=== PATIENT | female | born 1990 | race Caucasian/White ===

== ENCOUNTER 2017-02-12 06:17 | Emergency (ER) | payer OTHER ==
[2017-02-12] MEDS ORDERED: ONDANSETRON HCL/PF 2 MG/ML VIAL IV ONE (06:42)
[2017-02-12] MEDS ORDERED: NORMAL SALINE 1,000 ML IV ONE (06:43)
--- NOTE | 2017-02-12 06:47 | ERNOTE ---
Abdominal HPI - General Chief Complaint: Abdominal Pain Time Seen by Provider: 02/12/17 06:28 Source: patient Exam Limitations: no limitations - Immun/Allergies/Home Medications Immunizatons: IMMUNIZATION HX Immunizations Up to Date Yes History of Influenza Vaccine Yes Hx Pneumococcal Vaccination No Allergies/Adverse Reactions: Allergies No Known Allergies Allergy (Unverified 02/12/17 06:25) Home Medications: HOME MEDICATIONS ALPRAZolam [Xanax] 0.25 mg PO TID PRN 02/12/17 [Last Taken Unknown] Ondansetron HCl [Zofran] 1 - 2 tab PO Q8H PRN #10 tab 02/12/17 [Last Taken Unknown] busPIRone HCL [Buspar] 5 mg PO TID PRN 02/12/17 [Last Taken Unknown] - History of Present Illness Narrative: Pt began to loose her appetite last evening. Overnight she began to have N/V/D multiple times. Diarrhea watery, vomiting until dry heaving, with left sided abdominal pain Timing: getting worse Quality: moderate, severe, cramping, sharpness - radiating up to her epigastrium Activities at Onset: sleep Associated Symptoms: Present: denies symptoms Review of Systems - Review of Systems Constitutional: Absent: recent illness EYE: Present: no symptoms reported ENT: Present: no symptoms reported Respiratory: Absent: shortness of breath Cardiology: Absent: chest pain Gastrointestinal/Abdominal: Present: See HPI Genitourinary: Absent: frequency, dysuria Musculoskeletal: Present: no symptoms reported Skin: Present: no symptoms reported Neurological: Present: no symptoms reported Endocrine: Present: no symptoms reported Hematologic/Lymphatic: Present: no symptoms reported Psych: Present: no symptoms reported - Patient's Past Medical History Patient History - Medical: No pertinent hx Patient History - Cardiac/Respiratory: No pertinent hx Patient History - Cancer: No Hx of Cancer Patient History - Other: None LMP (females 10-50): 3 weeks - Social History Living Situations: home Psych History: Hx of Anxiety Smoking Status: Never smoker Have you smoked in the past 12 months: No Do you dip or chew tobacco: No Alcohol Use: none Drug Use: none - Immunizations Immunizations Up to Date: Yes Hx Pneumococcal Vaccination: No History of Influenza Vaccine: Yes Physical Exam - Physical Exam General Appearance: Present: wd/wn, alert, mild distress Head Exam: Present: normal inspection, no evidence of injury Eye Exam: Normal inspection: bilateral Neck: Present: normal inspection, supple Respiratory: Present: no respiratory distress, normal breath sounds, lungs clear Cardiovascular/Chest: Present: regular rate, rhythm, no murmur Gastrointestinal/Abdominal: Present: tenderness - left side upper and lower and epigastrium. Back Exam: Present: normal inspection, normal range of motion Extremity Exam: Present: normal inspection, normal range of motion, no edema Neurological Exam: Present: alert, oriented Skin Exam: Present: normal color, warm/dry ED Progress - Results and Orders Patient's Lab Results:: I have reviewed the patient's lab results. Results and Orders: Laboratory Tests 02/12/17 02/12/17 02/12/17 06:59 06:59 06:59 WBC 13.0 H Hgb 14.4 Hct 41.5 Plt Count 234 Neutrophils % 89.0 H Sodium 140 Potassium 3.7 Chloride 102 Carbon Dioxide 28.8 BUN 11 Creatinine 0.78 Random Glucose 107 Calcium 8.6 Total Bilirubin 0.8 AST 15 ALT 21 Alkaline Phosphatase 59 Total Protein 7.7 Albumin 4.1 Amylase 53 Lipase 85 Urine Color Urine Appearance Urine pH Ur Specific [place] Urine Protein Urine Glucose (UA) Urine Ketones Urine Blood Urine Nitrate Urine Bilirubin Urine Urobilinogen Ur Leukocyte Esterase Urine RBC Urine WBC Ur Epithelial Cells Urine Bacteria Urine Culture Comments Urine HCG, Qual Negative 02/12/17 06:59 WBC Hgb Hct Plt Count Neutrophils % Sodium Potassium Chloride Carbon Dioxide BUN Creatinine Random Glucose Calcium Total Bilirubin AST ALT Alkaline Phosphatase Total Protein Albumin Amylase Lipase Urine Color Yellow Urine Appearance Clear Urine pH 6.0 Ur Specific [place] 1.020 Urine Protein Negative Urine Glucose (UA) Negative Urine Ketones 5 Urine Blood 5 H Urine Nitrate Negative Urine Bilirubin Negative Urine Urobilinogen Normal Ur Leukocyte Esterase Negative Urine RBC 0-5 Urine WBC 0-5 Ur Epithelial Cells 5-10 H Urine Bacteria None seen Urine Culture Comments No culture indicated Urine HCG, Qual - Vital Signs Patient's Vital Signs:: I have reviewed the patient's vital signs. Vital Signs: Vital Signs 02/12/17 06:20 Temperature 36.8 C Pulse Rate 107 H Respiratory 16 Rate Blood Pressure 125/81 O2 Sat by Pulse 95 Oximetry - X-Ray X-Ray #1 X-Ray: abdomen Interpretation: Reviewed by me X-ray Comments: Non specific non obstructive bowel gas pattern. - Progress/Reassessment Chief Complaint: Abdominal Pain Departure - Departure Clinical Impression: Gastroenteritis Disposition: Home self-care Condition: Good Instructions: Viral Gastroenteritis, Adult, [id number] Referrals: Dodie Garg FNP [Primary Care Provider] - Prescriptions: Ondansetron HCl [Zofran] 1 - 2 tab PO Q8H PRN #10 tab PRN Reason: Nausea
[2017-02-12 07:01] LABS: Hematocrit 41.5 % (37.0-47.0); Hemoglobin 14.4 gm/dL (12.5-16.0); Mean Cell Volume 90.8 fl (78-100); Mean Corpuscular Hemoglobin 31.5 pg (27-31); Mean Corpuscular Hgb Conc 34.7 g/dl (32-36); Mean Platelet Volume 9.3 fl (6.0-9.5); Neutrophil # 11.6 K/mm3 (1.3-6.0); Platelet Count 234 K/mm3 (150-450); Red Blood Count 4.57 M/mm3 (4.2-5.4); Red Cell Distribution Width 11.6 % (11.5-14.0)
[2017-02-12 07:04] LABS: Urine Bilirubin Negative (NEGATIVE); Urine Ketone 5 mg/dL (NEGATIVE); Urine Nitrite Negative (NEGATIVE); Urine Protein Negative (NEGATIVE); Urine Urobilinogen Normal (NORMAL)
[2017-02-12] MEDS ORDERED: ONDANSETRON HCL/PF 2 MG/ML VIAL ONE (07:13)
[2017-02-12 07:15] LABS: Albumin * 4.1 gm/dl (3.4-5.0); Anion Gap 12.9 mmol/L (6.8-13.8); BUN/Creatinine Ratio 14.1 (9.0-21.6); Bilirubin, Total 0.8 mg/dL (0.0-1.1); Ca. Corrected For Albumin 8.2 mg/dL (8.4-10.2); Calcium * 8.6 mg/dL (7.9-10.9); Carbon Dioxide 28.8 mmol/L (24-32.6); Potassium 3.7 mmol/L (3.4-4.6); Total Protein 7.7 gm/dL (6.2-8.2)
[2017-02-12 07:21] LABS: Urine Blood 5 /ul (NEGATIVE); Urine Color Yellow
[2017-02-12 07:22] LABS: Urine Appearance Clear; Urine Bacteria None Seen; Urine RBC 0-5 /hpf (0-5); Urine WBC 0-5 /hpf (0-5)
[2017-02-12 07:36] VITALS: BP 116/59
[2017-02-12] MEDS ORDERED: PROCHLORPERAZINE EDISYLATE 5 MG/ML VIAL IV ONE (07:41)
[2017-02-12] MEDS ORDERED: PROCHLORPERAZINE EDISYLATE 5 MG/ML VIAL ONE (07:44)
== END 2017-02-12 08:19 | disposition home or self-care (01) ==
LOC: ER 06:17
DX: K52.9 Noninfective gastroenteritis and colitis, unspecified (principal)
CPT/HCPCS: 36415; 74020; 80053; 81001; 82150; 83690; 84703; 85025; 96374; 96375; 99284; J2405

== ENCOUNTER 2020-10-30 23:37 | Inpatient (IN) ==
[2020-10-31] MEDS ORDERED: MISOPROSTOL 100 MCG TABLET VG PRN (00:05)
[2020-10-31] MEDS ORDERED: DEXTROSE 5%-LACTATED RINGERS 1,000 ML IV PRN (00:05)
[2020-10-31] MEDS ORDERED: ONDANSETRON 4 MG TAB.RAPDIS PO PRN (00:05)
[2020-10-31] MEDS ORDERED: OXYTOCIN/0.9 % SODIUM CHLORIDE 30 UNITS/500 ML BAG IV ONE (00:05)
[2020-10-31] MEDS ORDERED: RINGER'S SOLUTION,LACTATED 1,000 ML IV ONE (00:05)
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
--- NOTE | 2020-10-31 13:38 | PN ---
Progess Note - Interim Date: 10/31/20 Time: 13:34 Narrative: 10/31/20 13:34 Patient rating contractions as mild still. Vital signs stable. Pitocin at 8 mu/min. FHT: A: 125 baseline, reassuring B: 120 baseline, reassuring Contractions q 2-3 min Cervix: 2/70/-2 Bedside ultrasound confirmed both fetuses in cephalic presentation with baby B actually below baby A Impression: Intrauterine at 36 5/7 weeks with induction of labor due to di-di twin with IUGR in baby B Plan: Continue present plan
[2020-10-31] MEDS ORDERED: ONDANSETRON HCL/PF 2 MG/ML VIAL IV PRN ×2 (17:39→18:00)
[2020-10-31] MEDS ORDERED: NALOXONE HCL 1 MG/1 ML SYRG IV PRN ×2 (17:39→18:00)
[2020-10-31] MEDS ORDERED: BUPIVACAINE HCL/0.9 % NACL/PF 250 ML EP PRN ×2 (17:39→18:00)
--- NOTE | 2020-10-31 17:42 | PN ---
Progess Note - Interim Date: 10/31/20 Time: 17:39 Narrative: 10/31/20 17:39 Patient rating contractions 4 out of 10 Vital signs stable. Pitocin at 8 mu/min. FHT: A: 120 baseline, reassuring B:120 baseline, reassuring Contractions q 2-3 min Cervix: 2/70/-2, AROM-clear Impression: Intrauterine at 36 5/7 weeks di-di twin induction for baby B with IUGR. Plan: Continue present plan
[2020-10-31] MEDS ORDERED: BUPIVACAINE HCL/PF 30 ML VIAL EP SCH (17:45)
[2020-10-31] MEDS ORDERED: fentaNYL CITRATE/PF 50 MCG/ML AMPUL IT SCH (18:00)
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
--- NOTE | 2020-10-31 18:42 | ANES ---
Post Anesthesia Discharge - Transfer of Care Transfer of Care handoff given to nurse: Yes - Discharge from PACU Discharge from PACU when meets criteria: Yes - Comfortable post CSE.
--- NOTE | 2020-10-31 18:45 | ANES ---
Anesthesia Procedure Note Procedure Note: ANESTHESIA PROCEDURE NOTE Date of Procedure: 10/31/2020 Time of procedure: 1819. Performed by: TEDDY Wheeler CRNA, MSN Preprocedure diagnosis: Active labor, labor pain. Post procedure diagnosis: Same. Procedure:Epidural for labor analgesia L3-4. Indications: Labor pain. Findings: See below. Details of the procedure: The patient was placed on the side of the bed in sitting positionand prepped with DuraPrep then draped in a sterile fashion. Lidocaine 1% was infiltrated to the skin and subcutaneous tissues at the level of the 3 4 interspace. An 18-gauge Touhy needle was used to approach the epidural space with loss of resistance technique. Once loss of resistance was achieved a 27-gauge spinal needle was passed through the epidural needle and CSF was contacted. After CSF returned, 20 mcg of fentanyl was injected in the spinal needle was removed the epidural catheter was then threaded approximately 4 cm in the epidural needle was removed. The catheter was taped in place and after careful aspiration 3 mL of 1.5% lidocaine with 1-200,000 epinephrine was injected without change in maternal heart rate or sensorium. . EBL: Minimal. Fluids: N/A. Specimen: N/A. Post procedure condition: The patient tolerated the procedure well with good relief. No complications were noted. Thank you for this consultation. Eleazar Oconnor CRNA, TEDDY, MSN
--- NOTE | 2020-10-31 19:43 | ANES ---
Post Anesthesia Assessment - Vital Signs Vitals: Last Vital Signs Temp 36.7 C 10/31/20 02:11 Pulse 76 10/31/20 02:11 Resp 18 10/31/20 02:11 BP 134/79 10/31/20 02:11 Pulse Ox 98 10/31/20 02:11 Airway Patency: Normal - Mental Status Level Of Consciousness: Awake, Alert, Appropriate - Pain Level Pain Score: 0 - N/V Assessment Nausea/Vomiting Presence: None Dehydration:: No
--- NOTE | 2020-11-01 03:47 | PN ---
Progess Note - Interim Date: 11/01/20 Time: 03:43 Narrative: 11/01/20 03:43 Patient comfortable with epidural Vital signs stable. Pitocin at 10 mu/min. FHT: A: 160 baseline, reassuring B:150 baseline, reassuring Contractions q 2-3 min Cervix: 7-8/90/-1 Impression: Intrauterine at 36 6/7 weeks di-di twin induction for baby B with IUGR. Plan: Anticipate normal spontaneous vaginal delivery within the next 3 to 4 hours.
[2020-11-01] MEDS ORDERED: SODIUM BICARBONATE 650 MG TABLET PO ONE (05:54)
[2020-11-01] MEDS ORDERED: LIDOCAINE HCL/EPINEPHRINE 20 ML VIAL ONE (06:37)
[2020-11-01] MEDS ORDERED: LIDOCAINE HCL/EPINEPHRINE/PF 20 ML VIAL IJ ONE (06:37)
--- NOTE | 2020-11-01 06:46 | ANES ---
Post Anesthesia Assessment - Vital Signs Vitals: Last Vital Signs Temp 36.7 C 10/31/20 02:11 Pulse 76 10/31/20 02:11 Resp 18 10/31/20 02:11 BP 134/79 10/31/20 02:11 Pulse Ox 98 10/31/20 02:11 Airway Patency: Normal - Mental Status Level Of Consciousness: Awake, Alert, Appropriate - Pain Level Pain Score: 0 - N/V Assessment Nausea/Vomiting Presence: None Dehydration:: No - Additional Notes Comments:: In communications throughout evening. About 1 hour after epidural was placed Ms. Blancas complained of not feeling right and was nauseated. I could not reasonably explain the experience she was having but of out of an abundance of caution I ordered a temporary stoppage of the epidural pump. There was no blood aspirated from the epidural, I have allowed about an hour and her complaints of nausea and not feeling right dissipated. The epidural pump was restarted without further issue. This morning as she Reddys for delivery she complained that her legs are more swollen and somewhat numb. She has no complaints of labor pain. Although her legs had previously been swollen the nurse attending to her did remark that they appeared more swollen than yesterday. I explained that we were going to return to the OR for delivery and, although I I was going to be there with her, I would probably have limited intervention as I am not normally in attendance for delivery.
--- NOTE | 2020-11-01 09:40 | OR ---
Operative Report - Dictated Report Narrative: Twin delivery in OR: Baby A: Spontaneous vaginal delivery of vigorously crying viable female at 0824 on 11/01/2020 with Apgars 8 and 9, weighing 2747 g in ANNE position. Baby B: Spontaneous vaginal delivery of vigorously crying viable female at 0836 on 11/01/2020 with Apgars 9 and 9, weighing 2278 g and OP presentation. Cord clamping delayed approximately 1 minute for each Fused placentas with 2 amnion and 2 chorion's delivered complete, intact, each with three vessel cord. Cord clamp placed on baby A's umbilical cord. Estimated blood loss: 100 mL Anesthesia: Epidural Lacerations: 5 cm second-degree vaginal laceration with intact external anal sphincter repaired with 0 Vicryl and 3-0 Vicryl Rapide. History for MU History for Definition: * The number of deliveries resulting in a live the patient experienced prior to current hospitalization * The previous delivery of live twins or any live multiple gestation is considered one live event. *If primagravida or nulliparous is documented select zero for the number of previous live births. Live Events: Live Events: 0
[2020-11-01] MEDS ORDERED: HYDROCORTISONE 30 APPL TUBE TP PRN (09:44)
[2020-11-01] MEDS ORDERED: ACETAMINOPHEN 325 MG TABLET PO PRN (09:44)
[2020-11-01] MEDS ORDERED: SENNOSIDES 8.6 MG TABLET PO PRN (09:44)
[2020-11-01] MEDS ORDERED: BENZOCAINE/MENTHOL 81 SPRAY CAN TP PRN (09:44)
[2020-11-01] MEDS ORDERED: BISACODYL 10 MG SUPP.RECT RC PRN (09:44)
[2020-11-01] MEDS ORDERED: OXYTOCIN/0.9 % SODIUM CHLORIDE 30 UNITS/500 ML BAG IV ONE (09:44)
[2020-11-01] MEDS ORDERED: GLYCERIN/WITCH HAZEL LEAF 40 APPL BOX TP PRN (09:44)
[2020-11-01] MEDS ORDERED: NON-FORMULARY 1 DOSE DOSE (Breast Pump device) SCH (09:45)
[2020-11-01] MEDS: IBUPROFEN 800 MG TABLET PO PRN ×2 (12:11→18:55)
[2020-11-01] MEDS: DOCUSATE SODIUM 100 MG CAPSULE PO SCH (21:18)
[2020-11-01] MEDS: oxyCODONE HCL/ACETAMINOPHEN 1 TAB TABLET PO PRN (23:04)
[2020-11-02] MEDS: IBUPROFEN 800 MG TABLET PO PRN ×3 (03:50→21:21)
[2020-11-02] MEDS: oxyCODONE HCL/ACETAMINOPHEN 1 TAB TABLET PO PRN (08:59)
[2020-11-02] MEDS: DOCUSATE SODIUM 100 MG CAPSULE PO SCH ×2 (08:59→21:05)
[2020-11-02] MEDS: PRENATAL VITS96/IRON FUM/FOLIC 1 TAB TABLET PO SCH (08:59)
--- NOTE | 2020-11-02 11:10 | PN ---
Subjective - Date and Time Seen Date: 11/02/20 Time: 11:07 Objective - Vitals Vitals: Last Vital Signs Temp 36.6 C 11/02/20 08:10 Pulse 66 11/02/20 08:10 Resp 20 11/02/20 08:10 BP 131/71 11/02/20 08:10 Pulse Ox 99 11/02/20 08:10 Patient having trouble sleeping due to hearing babies crying, breast-feeding well, perineal pain controlled. Lochia wnl abdomen - soft, nontender Uterus -firm, at umbilicus - 1 No calf tenderness Impression: day #1 - s/p spontaneous vaginal delivery of twins. Plan: Continue routine care. Ice pack to perineum. Encouraged mom to rely on nurses to care for baby so she can sleep. Cauti Physician Documentation - Urinary Catheter Management Urethral ([place]) Date of Insertion: 10/31/20 Time of Insertion: 19:30 Date of Removal: 11/01/20 Time of Removal: 08:19 Assessment/Plan - Problems/Diagnosis (1) Twin delivered vaginally Problem: Acute (2) Twin resulting from assisted reproductive technology (ART) Problem: Acute (3) with history of ectopic Problem: Resolved Qualifiers: Trimester: third trimester Qualified Code(s): O09.13 - Supervision of with history of ectopic , third trimester (4) Anxiety Problem: Inactive (5) Depression Problem: Inactive Qualifiers:
[2020-11-03] MEDS: IBUPROFEN 800 MG TABLET PO PRN ×2 (03:11→09:15)
[2020-11-03 07:59] VITALS: BP 129/86
[2020-11-03] MEDS: DOCUSATE SODIUM 100 MG CAPSULE PO SCH (08:38)
[2020-11-03] MEDS: PRENATAL VITS96/IRON FUM/FOLIC 1 TAB TABLET PO SCH (08:38)
--- NOTE | 2020-11-03 10:39 | PN ---
Subjective - Date and Time Seen Date: 11/03/20 Time: 10:38 Objective - Vitals Vitals: Last Vital Signs Temp 37 C 11/03/20 07:45 Pulse 92 11/03/20 07:45 Resp 16 11/03/20 07:45 BP 129/86 11/03/20 07:45 Pulse Ox 98 11/03/20 07:45 Patient denies complaints. Breast-feeding well. Lochia wnl abdomen - soft, nontender Uterus -firm, at umbilicus - 2 No calf tenderness Impression: day #2 - s/p spontaneous vaginal delivery. Plan: Routine discharge instructions Cauti Physician Documentation - Urinary Catheter Management Urethral ([place]) Date of Insertion: 10/31/20 Time of Insertion: 19:30 Date of Removal: 11/01/20 Time of Removal: 08:19 Assessment/Plan - Problems/Diagnosis (1) Twin delivered vaginally Problem: Acute (2) Twin resulting from assisted reproductive technology (ART) Problem: Acute (3) with history of ectopic Problem: Resolved Qualifiers: Trimester: third trimester Qualified Code(s): O09.13 - Supervision of with history of ectopic , third trimester (4) Anxiety Problem: Inactive (5) Depression Problem: Inactive Qualifiers:
--- NOTE | 2020-11-03 10:41 | DS ---
OB Discharge Summary (1) Twin delivered vaginally Status: Acute (2) Twin resulting from assisted reproductive technology (ART) Status: Acute (3) with history of ectopic Status: Resolved Qualifiers: Trimester: third trimester Qualified Code(s): O09.13 - Supervision of with history of ectopic , third trimester (4) Anxiety Status: Inactive (5) Depression Status: Inactive Qualifiers: Delivery Date: 11/01/20 Delivery Time: 08:24 :: 3 Para:: 2 Gestational weeks:: 36 Gestational days:: 6 Intrapartum Procedures: Spontaneous Vaginal Delivery, Delivered, Anesthesia - Epidural /OP Complications: No Complications Discharge Diagnosis: Term -Delivered, Rubella Immune - Discharge Information Date of Discharge: 11/03/20 Hospital Course: 30-year-old 3 para 0-1-2-2 admitted at 36 5/7 weeks for induction of labor due to diamniotic dichorionic twins with baby B showing IUGR. Induction, labor, delivery, and course were uncomplicated. Discharge Location: Home Condition: Good Activity on Discharge:: Activity as tolerated, Pelvic Rest Discharge Diet: General/regular food Additional Patient Instructions (free text): Chao your post follow up appointment is scheduled for Thursday November 26, 2020 at 9:[address] Varner. Please call [facility] or [facility] with any problems or concerns. Ernestine's follow up appointments are scheduled for Friday November 06, 2020 at 12:30 p.m. with Dione Vail ADVERTISING SUPERVISOR Please call [facility] with any problems or concerns. Before or after your appointments please contact us for Rupinder's follow up hearing screen. Anel's blood type is A+ Discharge weight 5 lbs 8.5 oz Rupinder's blood type is AB+ Discharge weight 4 lbs 11.1 oz Continue to breastfeed them at least every 2-[address] them on their back to sleep in their own bassinets or cribs. No stuffed animals, bumper pads, pillows or blankets. Congratulations on your beautiful twins! Thank you for choosing [facility]. Prescriptions (Any new or edited meds): Ferrous Sulfate 325 mg PO DAILY #60 tab Ibuprofen [Motrin] 200 - 800 mg PO Q6H PRN #100 tab PRN Reason: Pain Complete Home Medications List: Complete Home Medication List: prenat.vits,mimi,[id number] 1 tab PO DAILY 04/30/20 breast pump See Rx Instructions .ROUTE .MEDSUPPLY #1 ea 08/31/20 Ferrous Sulfate 325 mg PO DAILY #60 tab 11/02/20 Ibuprofen [Motrin] 200 - 800 mg PO Q6H PRN #100 tab 11/02/20 - Plan Discharge to:: Home Follow up in office in:: 3-4 weeks - [place] Information Weight (Grams): 2,747 Sex: Female Score 1 min: 8 Score 5 min: 9 Complications: None Other Complications: Twin B, female at 0836. Apgars 9/9. 2278grams.
== END 2020-11-03 15:20 | disposition home or self-care (01) | DRG 807 ==
LOC: OB 23:37
PROVIDERS: ADMIT Obstetrics & Gynecology; ATTEND Obstetrics & Gynecology
DX: F41.8 Other specified anxiety disorders; O36.5932 Maternal care for other known or suspected poor fetal growth, third trimester, fetus 2; Z37.2 Twins, both liveborn; O99.344 Other mental disorders complicating childbirth; O30.043 Twin pregnancy, dichorionic/diamniotic, third trimester; Z3A.36 36 weeks gestation of pregnancy; O43.893 Other placental disorders, third trimester; O70.1 Second degree perineal laceration during delivery